=== PATIENT | female | born 1950 | race Caucasian/White ===

== ENCOUNTER 2023-01-16 10:30 | Inpatient (IN) ==
[2023-01-16] MEDS ORDERED: IOPAMIDOL 100 ML BOTTLE IV ONE (10:31)
[2023-01-16 11:25] LABS: POC Calcium, Ionized 1.12 (1.16-1.32); POC Creatinine 0.8 (0.6-1.2); POC Potassium 3.7 (3.3-5.1)
[2023-01-16] MEDS ORDERED: ONDANSETRON 4 MG/2 ML VIAL IV ONE (11:25)
[2023-01-16] MEDS ORDERED: HYDROmorphone 0.5 MG/0.5 ML SYRINGE IV PRN ×2 (11:25→13:47)
[2023-01-16] MEDS ORDERED: KETOROLAC 15 MG/ML VIAL IV ONE (12:01)
[2023-01-16 12:11] LABS: Basophils # (Auto) 0.04 K/mcL (0.00-0.30); Basophils % (Auto) 0.3 % (0.0-2.0); Eosinophils # (Auto) 0.09 K/mcL (0.00-0.70); Eosinophils % (Auto) 0.7 % (0.0-7.0); Hematocrit 39.3 % (34.1-44.9); Hemoglobin 12.8 g/dL (11.2-15.7); Lymphocytes # (Auto) 1.49 K/mcL (1.50-4.80); Lymphocytes % (Auto) 11.1 % (15.5-49.0); Mean Cell Volume 93.8 fL (80.0-100.0); Mean Corpuscular HGB Conc 32.6 g/dL (31.0-36.0); Mean Platelet Volume 9.5 fL (8.8-12.5); Monocytes # (Auto) 1.11 K/mcL (0.10-0.90); Monocytes % (Auto) 8.3 % (1.0-12.0); Neutrophils % (Auto) 79.2 % (38.0-78.0); Platelet Count 273 K/mcL (140-440); RBC 4.19 M/mcL (3.59-5.38); Red Cell Distribution Width 13.5 % (11.5-14.5); WBC 13.4 K/mcL (4.5-11.0)
[2023-01-16 12:31] LABS: ALT/SGPT 87 U/L (<40); AST/SGOT 44 U/L (<32); Albumin 3.5 gm/dL (3.2-5.2); Alkaline Phosphatase 129 U/L (39-117); Bilirubin,Direct 0.3 mg/dL (<0.3); Bilirubin,Total 0.7 mg/dL (0.1-1.0); Globulin 3.2 gm/dL (2.2-3.7)
[2023-01-16] MEDS ORDERED: 0.9 % SODIUM CHLORIDE 1,000 ML IV ONE (12:58)
[2023-01-16] MEDS ORDERED: CIPROFLOXACIN 400 MG/200 ML BAG IV ONE ×2 (13:17→23:25)
[2023-01-16] MEDS ORDERED: metroNIDAZOLE 500 MG/100 ML BAG IV ONE (13:17)
[2023-01-16] MEDS ORDERED: ONDANSETRON 4 MG/2 ML VIAL IV PRN (13:51)
[2023-01-16] MEDS ORDERED: PIPERACILLIN SODIUM/TAZOBACTAM 3.375 GM in DEXTROSE 5% IN WATER 50 ML IV SCH (14:00)
[2023-01-16] MEDS ORDERED: PIPERACILLIN SODIUM/TAZOBACTAM 3.375 GM in DEXTROSE 5% IN WATER 100 ML IV SCH (15:00)
[2023-01-16] MEDS: PIPERACILLIN SODIUM/TAZOBACTAM 3.375 GM in DEXTROSE 5% IN WATER 100 ML IV SCH (17:43)
[2023-01-16] MEDS: DEXTROSE 5%-LR 1,000 ML IV SCH ×2 (19:07→22:07)
[2023-01-16] MEDS ORDERED: ACETAMINOPHEN 1,000 MG/100 ML BAG IV PRN (19:32)
[2023-01-16] MEDS ORDERED: ACETAMINOPHEN 1,000 MG/100 ML BAG IV ONE (19:42)
[2023-01-16] MEDS ORDERED: METOCLOPRAMIDE 10 MG/2 ML VIAL IV PRN (23:09)
[2023-01-16] MEDS: CIPROFLOXACIN 400 MG/200 ML BAG IV SCH (23:52)
[2023-01-17] MEDS: PIPERACILLIN SODIUM/TAZOBACTAM 3.375 GM in DEXTROSE 5% IN WATER 100 ML IV SCH ×3 (01:40→17:15)
[2023-01-17] MEDS: DEXTROSE 5%-LR 1,000 ML IV SCH ×3 (05:09→21:18)
[2023-01-17] MEDS ORDERED: ACETAMINOPHEN 1,000 MG/100 ML BAG IV ONE (05:29)
[2023-01-17] MEDS: ACETAMINOPHEN 1,000 MG/100 ML BAG IV SCH ×3 (05:39→21:40)
[2023-01-17 06:12] LABS: Hematocrit 42.9 % (34.1-44.9); Hemoglobin 12.6 g/dL (11.2-15.7); Mean Cell Volume 106.5 fL (80.0-100.0); Mean Corpuscular HGB Conc 29.4 g/dL (31.0-36.0); Mean Platelet Volume 9.8 fL (8.8-12.5); Platelet Count 270 K/mcL (140-440); RBC 4.03 M/mcL (3.59-5.38); Red Cell Distribution Width 13.6 % (11.5-14.5); WBC 10.8 K/mcL (4.5-11.0)
[2023-01-17 06:38] LABS: Blood Urea Nitrogen 11 mg/dL (8-23); Calcium 8.7 mg/dL (8.6-10.4); Carbon Dioxide 20 mmol/L (22-30); Chloride 103 mmol/L (96-108); Glomerular Filtration Rate 74; Glucose 148 mg/dL (70-105)
[2023-01-17] MEDS: CIPROFLOXACIN 400 MG/200 ML BAG IV SCH ×2 (08:53→21:40)
[2023-01-18] MEDS: PIPERACILLIN SODIUM/TAZOBACTAM 3.375 GM in DEXTROSE 5% IN WATER 100 ML IV SCH ×3 (02:29→17:40)
[2023-01-18] MEDS: ACETAMINOPHEN 1,000 MG/100 ML BAG IV SCH ×2 (05:38→12:58)
[2023-01-18 06:20] LABS: Hematocrit 36.5 % (34.1-44.9); Mean Cell Volume 93.1 fL (80.0-100.0); Mean Corpuscular HGB Conc 32.9 g/dL (31.0-36.0); Mean Platelet Volume 9.5 fL (8.8-12.5); Platelet Count 297 K/mcL (140-440); RBC 3.92 M/mcL (3.59-5.38); Red Cell Distribution Width 13.4 % (11.5-14.5); WBC 11.6 K/mcL (4.5-11.0)
[2023-01-18] MEDS: DEXTROSE 5%-LR 1,000 ML IV SCH ×2 (06:24→17:40)
[2023-01-18 07:58] LABS: Blood Urea Nitrogen 7 mg/dL (8-23); Calcium 8.5 mg/dL (8.6-10.4); Carbon Dioxide 24 mmol/L (22-30); Chloride 107 mmol/L (96-108); Glomerular Filtration Rate 74; Glucose 157 mg/dL (70-105)
[2023-01-18] MEDS: CIPROFLOXACIN 400 MG/200 ML BAG IV SCH ×2 (08:20→20:36)
[2023-01-18] MEDS: LORazepam 2 MG/ML VIAL IV PRN ×2 (11:05→21:47)
[2023-01-18] MEDS: 0.9 % SODIUM CHLORIDE 10 ML SYRINGE IV SCH (20:37)
[2023-01-19] MEDS: PIPERACILLIN SODIUM/TAZOBACTAM 3.375 GM in DEXTROSE 5% IN WATER 100 ML IV SCH ×3 (02:42→17:11)
[2023-01-19] MEDS: DEXTROSE 5%-LR 1,000 ML IV SCH ×2 (02:42→07:02)
[2023-01-19 06:22] LABS: Hemoglobin 11.6 g/dL (11.2-15.7); Mean Cell Volume 92.6 fL (80.0-100.0); Mean Corpuscular HGB Conc 33.1 g/dL (31.0-36.0); Mean Platelet Volume 9.5 fL (8.8-12.5); Platelet Count 323 K/mcL (140-440); RBC 3.78 M/mcL (3.59-5.38); Red Cell Distribution Width 13.5 % (11.5-14.5)
[2023-01-19 06:41] LABS: Blood Urea Nitrogen 8 mg/dL (8-23); Calcium 8.7 mg/dL (8.6-10.4); Carbon Dioxide 26 mmol/L (22-30); Chloride 105 mmol/L (96-108); Glomerular Filtration Rate 74; Glucose 128 mg/dL (70-105)
[2023-01-19] MEDS: CIPROFLOXACIN 400 MG/200 ML BAG IV SCH ×2 (08:12→21:35)
[2023-01-19] MEDS: LORazepam 2 MG/ML VIAL IV PRN ×2 (09:57→21:34)
[2023-01-19] MEDS: DEXTROSE 5%-LR W/20MEQ KCL 1,000 ML IV SCH ×2 (11:00→21:33)
[2023-01-19] MEDS: 0.9 % SODIUM CHLORIDE 10 ML SYRINGE IV SCH ×2 (11:04→21:37)
[2023-01-20] MEDS: PIPERACILLIN SODIUM/TAZOBACTAM 3.375 GM in DEXTROSE 5% IN WATER 100 ML IV SCH ×3 (02:23→17:56)
[2023-01-20] MEDS: 0.9 % SODIUM CHLORIDE 10 ML SYRINGE IV PRN (02:25)
[2023-01-20 06:14] LABS: Hematocrit 34.5 % (34.1-44.9); Hemoglobin 11.4 g/dL (11.2-15.7); Mean Platelet Volume 9.6 fL (8.8-12.5); Platelet Count 315 K/mcL (140-440); RBC 3.71 M/mcL (3.59-5.38); Red Cell Distribution Width 13.8 % (11.5-14.5); WBC 8.2 K/mcL (4.5-11.0)
[2023-01-20 06:57] LABS: Blood Urea Nitrogen 9 mg/dL (8-23); Calcium 8.4 mg/dL (8.6-10.4); Carbon Dioxide 26 mmol/L (22-30); Chloride 104 mmol/L (96-108); Glomerular Filtration Rate 74; Glucose 130 mg/dL (70-105)
[2023-01-20] MEDS: DEXTROSE 5%-LR W/20MEQ KCL 1,000 ML IV SCH ×2 (07:12→08:15)
[2023-01-20] MEDS: ACETAMINOPHEN 500 MG TABLET PO PRN (08:14)
[2023-01-20] MEDS: 0.9 % SODIUM CHLORIDE 10 ML SYRINGE IV SCH ×2 (08:49→20:04)
[2023-01-20] MEDS: CIPROFLOXACIN 400 MG/200 ML BAG IV SCH ×2 (08:57→20:03)
[2023-01-20] MEDS ORDERED: POTASSIUM CHLORIDE 40 MEQ in DEXTROSE 5%-1/2NS 1,000 ML IV SCH (15:15)
[2023-01-20] MEDS ORDERED: POTASSIUM CHLORIDE 20 MEQ/15 ML ML PO ONE (15:30)
[2023-01-20] MEDS: DEXTROSE 5%-1/2NS W/30MEQ KCL 1,000 ML IV SCH (15:35)
[2023-01-20] MEDS: LORazepam 0.5 MG TABLET PO PRN (20:04)
[2023-01-21] MEDS: DEXTROSE 5%-1/2NS W/30MEQ KCL 1,000 ML IV SCH ×3 (02:01→13:24)
[2023-01-21] MEDS: 0.9 % SODIUM CHLORIDE 10 ML SYRINGE IV PRN ×2 (02:04→06:02)
[2023-01-21] MEDS: PIPERACILLIN SODIUM/TAZOBACTAM 3.375 GM in DEXTROSE 5% IN WATER 100 ML IV SCH ×3 (02:07→17:56)
[2023-01-21 06:30] LABS: Hematocrit 36.9 % (34.1-44.9); Hemoglobin 11.4 g/dL (11.2-15.7); Mean Cell Volume 95.3 fL (80.0-100.0); Mean Corpuscular HGB Conc 30.9 g/dL (31.0-36.0); Mean Platelet Volume 9.4 fL (8.8-12.5); Platelet Count 370 K/mcL (140-440); RBC 3.87 M/mcL (3.59-5.38); WBC 8.7 K/mcL (4.5-11.0)
[2023-01-21 06:51] LABS: Blood Urea Nitrogen 5 mg/dL (8-23); Calcium 8.5 mg/dL (8.6-10.4); Carbon Dioxide 24 mmol/L (22-30); Chloride 104 mmol/L (96-108); Glomerular Filtration Rate 64; Glucose 124 mg/dL (70-105)
[2023-01-21] MEDS: 0.9 % SODIUM CHLORIDE 10 ML SYRINGE IV SCH ×2 (08:50→21:57)
[2023-01-21] MEDS: CIPROFLOXACIN 400 MG/200 ML BAG IV SCH ×2 (09:19→21:56)
[2023-01-21] MEDS ORDERED: IOPAMIDOL 100 ML BOTTLE IV ONE (10:04)
[2023-01-21] MEDS ORDERED: VANCOMYCIN PER PHARMACY IV SCH (18:28)
[2023-01-21] MEDS: ACETAMINOPHEN 500 MG TABLET PO PRN (18:40)
[2023-01-21] MEDS ORDERED: KETOROLAC 30 MG/ML VIAL IV PRN (18:52)
[2023-01-21] MEDS: VANCOMYCIN 1,500 MG in 0.9 % SODIUM CHLORIDE 500 ML IV SCH (20:25)
[2023-01-21] MEDS: DEXTROSE 5%-1/2NS W/20MEQ KCL 1,000 ML IV SCH (22:00)
[2023-01-21] MEDS: LORazepam 0.5 MG TABLET PO PRN (22:23)
[2023-01-22] MEDS: PIPERACILLIN SODIUM/TAZOBACTAM 3.375 GM in DEXTROSE 5% IN WATER 100 ML IV SCH ×3 (02:25→18:04)
[2023-01-22] MEDS: DEXTROSE 5%-1/2NS W/20MEQ KCL 1,000 ML IV SCH ×3 (02:58→16:35)
[2023-01-22 06:46] LABS: Hematocrit 35.1 % (34.1-44.9); Hemoglobin 11.4 g/dL (11.2-15.7); Mean Cell Volume 93.4 fL (80.0-100.0); Mean Corpuscular HGB Conc 32.5 g/dL (31.0-36.0); Mean Platelet Volume 9.6 fL (8.8-12.5); Platelet Count 405 K/mcL (140-440); RBC 3.76 M/mcL (3.59-5.38); Red Cell Distribution Width 13.8 % (11.5-14.5); WBC 8.6 K/mcL (4.5-11.0)
[2023-01-22 07:59] LABS: Blood Urea Nitrogen 4 mg/dL (8-23); Calcium 8.6 mg/dL (8.6-10.4); Carbon Dioxide 25 mmol/L (22-30); Chloride 106 mmol/L (96-108); Glomerular Filtration Rate 74; Glucose 107 mg/dL (70-105)
[2023-01-22] MEDS: CIPROFLOXACIN 400 MG/200 ML BAG IV SCH ×2 (09:54→22:17)
[2023-01-22] MEDS: VANCOMYCIN 1,500 MG in 0.9 % SODIUM CHLORIDE 500 ML IV SCH ×2 (11:02→22:17)
[2023-01-22] MEDS: 0.9 % SODIUM CHLORIDE 10 ML SYRINGE IV SCH ×2 (11:03→22:17)
[2023-01-22] MEDS: LORazepam 0.5 MG TABLET PO PRN (18:58)
== END 2023-01-22 21:35 | disposition short-term general hospital (02) | DRG 392 ==
LOC: ED 10:30 → MEDSUR 15:46
PROVIDERS: ADMIT Surgery Surgical Critical Care; ATTEND Surgery Surgical Critical Care